=== PATIENT | male | born 1985 | race Caucasian/White ===

== ENCOUNTER 2022-12-01 00:41 | Outpatient (REF) | payer SELFPAY ==
--- NOTE | 2022-12-01 00:41 | EDS_ITS ---
DATE OF SERVICE 12/01/22 CHIEF COMPLAINT [Ingested fentanyl] HISTORY OF PRESENT ILLNESS [38-year-old male past medical history of psychiatric illness. Tonight he was arrested in the [place] area. He ingested 2 g of fentanyl to hide the evidence. This occurred about 1 hour ago. He was brought in by [facility] department. Patient states he is always depressed and suicidal.] Past Medical History [Psychiatric illness] Social History [Smokes daily. Drinks frequently. Uses drugs almost daily including fentanyl and methamphetamines. Does do IV drug use.] Review of Systems [Denies recent illness.] PHYSICAL EXAMINATION [38-year-old male. Vital signs are stable and afebrile. He does have a pulse rate in the 50s. But his blood pressure is 164/70. He is awake and alert. His pulse ox is 100% on room air. No hypoxia. Afebrile. He does not look septic or toxic. Sitting upright in bed. He is handcuffed. [employer] in the room. H EENT exam unremarkable. Atraumatic. Pupils round reactive light. No trouble breathing or swallowing. Neck nontender. No JVD. No lymphadenopathy. Lungs clear to auscultation bilaterally. Heart rate about 55. No murmur. Sinus bradycardia on the monitor. Chest wall nontender. Abdomen soft nontender. Moving all 4 extremities. Calves are nontender without edema. Normal strength. Back nontender. Neurologically is awake and alert with no focal motor deficits.] EMERGENCY DEPARTMENT COURSE AND TREATMENT [38-year-old male ingested 2 g of fentanyl reportedly the night to try to hide evidence after he was arrested by the [employer] department. Currently denies any complaints. Does have a history of psychiatric illness. Believes he was hospitalized last year for that. He will undergo an ED mental health evaluation including labs. [facility] department is planning on arresting him once he is medically cleared and take him back to the [place] [facility]. He has outstanding warrants. Currently he is stable but will need a period of observation in the emergency department] Lab results: CBC showed a white count of 7. H&H of 14 and 43. Platelets of 239. Urinalysis negative. EKG shows a sinus bradycardia rate of 42 no acute signs of DE or ischemia. No significant dysrhythmia.Rhythm strip showed a sinus bradycardia rate of 42. No PVCs. Rapid COVID test negative. Chemistries unremarkable. BUN is 6. Liver enzymes unremarkable. CRP less than 2.9. TSH 0.95. In the normal range. Glucose 101. Alcohol negative. Tox screen positive for amphetamines and benzodiazepines and ecstasy. Repeat exam at 1:55 AM patient is getting more sedate and somnolent suspect secondary to his ingestion of the fentanyl. His vital signs and heart rate remained stable remains bradycardic. He is not hypoxic. He will be given 2 mg IV of Narcan. Patient did show improvement to the IV Narcan and is more awake at this time. He is experiencing some physical withdrawal symptoms. Due to nausea was treated with IV Zofran also. Repeat exam patient is doing well at 0335 AM. He will be observed for a while longer to ensure that he does not become somnolent again with the fentanyl that he ingested. Currently he does not need another dose of Narcan. Expected plan is that he is under arrest and will go to [facility] under both withdrawal and suicide precautions. Repeat exam patient had recurrent nausea and vomiting was given a second dose of IV Zofran around 4:40 AM. Currently he is resting comfortably. Patient doing well at 5:21 AM. He will be given a notice IV Zofran. Discharged back to the [place] [facility] with a prescription for Zofran 4 mg as needed nausea. Impression: 1. Intentional fentanyl ingestion/overdose to hide evidence 2. Depression 3. Under arrest by the [employer] department 4. History of drug abuse 5. History of mental illness 6. Physical withdrawal from IV Narcan
--- NOTE | 2022-12-01 00:46 | EKG12_ITS ---
Test Reason : OVERDOSE Blood Pressure : / mmHG Vent. Rate : 042 BPM Atrial Rate : 042 BPM P-R Int : 132 ms QRS Dur : 082 ms QT Int : 474 ms P-R-T Axes : 045 042 031 degrees QTc Int : 395 ms Marked sinus bradycardia Abnormal ECG Confirmed by LEANN BRODERICK MD ([id number]), graphics editor CAREN SOL ([id number] on 12/07/2022 11:38:31 AM Referred By: VIN Confirmed By:LEANN BRODERICK MD
[2022-12-01 05:20] LABS: Mucous, Urine 0 SEEN /hpf (<or=2+); Red Blood Cells-Urine 0 SEEN /hpf (0-5); Squamous Epithelial Cells - UA 0 SEEN /hpf (0-5); White Blood Cells 0 SEEN /hpf (0-5)
[2022-12-01 05:44] LABS: Bacteria RARE /hpf (None Seen); Color, Urine Yellow (Yellow); Glucose, Dipstick NEGATIVE (Normal); Ketone-Dipstick Negative (Negative); Leukocyte Esterase-Dipstick 25 /ul (Negative); Nitrite-Dipstick Negative (Negative); Occult Blood-Urine Negative /ul (Negative); Protein-Dipstick Negative (Negative); Urine Bilirubin Dipstick Negative (Negative); Urine Clarity Clear (Clear); Urine Urobilinogen Normal (Normal)
[2022-12-01 05:48] LABS: Absolute Lymphocyte Count 2.42 X10^3/uL (0.83-4.51); Absolute Neutrophil Count 3.8 X10^3/uL (2.0-7.7); Basophil# 0.04 X10^3/uL; Basophil% 0.6 % (0-1); Eosinophil# 0.24 X10^3/uL; Eosinophils% 3.4 % (0-5); Hematocrit 43.4 % (40-54); Hemoglobin 14.4 g/dL (13.0-16.5); Lymphocyte # 2.42 X10^3/ul (0.83-4.51); Lymphocyte % 34.3 % (19-41); Mean Corp Hgb Conc 33.2 g/dL (32-36); Mean Corpuscular Hgb 29.2 pg (27.0-32.0); Mean Platelet Vol. 10.4 fl (6.2-12.0); Monocyte# 0.56 X10^3/uL; Monocyte% 7.9 % (0-10); NRBC Flagged by Analyzer 0 % (0-5); Neutrophil # 3.78 X10^3/uL (2.7-7.7); Neutrophil % 53.5 % (47-70); Platelet Count 239 K/mm3 (150-450); RBC Distribution Width CV 12.4 % (11.6-14.6); RBC Distribution Width SD 39.7 fl (35.1-43.9); Red Blood Count 4.93 M/mm3 (4.6-6.2); White Blood Count 7.1 K/mm3 (4.4-11.0)
[2022-12-01 07:50] LABS: ALB/GLOB Ratio 1.1 RATIO (0.9-2.4); Albumin, Serum 3.6 g/dL (3.2-5.0); BUN 6 mg/dL (7-18); BUN/Creat Ratio 7.7 RATIO (10-20); Creatinine, Serum 0.78 mg/dL (0.70-1.30); EST Glomerular Filtration Rate 120 mL/min (>60); Est Glom Filt Rate - Afr Amer 145 mL/min (>60); Globulin 3.2 g/dL (2.2-4.2); Glucose 101 mg/dL (74-106); Protein, Total 6.8 g/dL (6.4-8.2)
[2022-12-01 07:51] LABS: AST(SGOT) 24 U/L (15-37); Alanine Aminotransfer ALT/SGPT 20 U/L (16-61); Alkaline Phosphatase 64 U/L (45-117); Anion Gap 4 (5-15); Calcium,Total 8.4 mg/dL (8.5-10.1); Chloride 108 mmol/L (98-107); Potassium 4.2 mmol/L (3.5-5.1); Sodium Level 141 mmol/L (136-145)
[2022-12-01 07:52] LABS: CRP < 2.90 mg/L (0.0-3.0); Thyroid Stim Hormone (TSH) 0.96 uIU/mL (0.358-3.74)
[2022-12-01 07:54] LABS: Alcohol, Blood (Medical)-Serum < 3.0 mg/dL
[2022-12-01 07:56] LABS: Bilirubin, Direct 0.09 mg/dL (0.00-0.30)
[2022-12-01 07:58] LABS: Amphetamine Urine POSITIVE (<1000 ng/mL); Barbiturate Urine NEGATIVE (< 200 ng/mL); Benzodiazepine Urine POSITIVE (< 200 ng/mL); Cocaine Urine NEGATIVE (< 300 ng/mL); Ecstacy Urine POSITIVE (< 500 ng/mL); Methadone Urine NEGATIVE (< 300 ng/mL); Opiates Urine NEGATIVE (< 300 ng/mL); Vista UDS pH Range 6
[2022-12-01 07:59] LABS: PCP Urine NEGATIVE (< 25 ng/mL); THC Urine NEGATIVE (< 50 ng/mL)
== END 2022-12-01 05:54 ==
LOC: EDREF 00:41
PROVIDERS: Visit Provider Emergency Medicine
DX: T40.414A Poisoning by fentanyl or fentanyl analogs, undetermined, initial encounter (principal); F32.A Depression, unspecified; Z65.3 Problems related to other legal circumstances; Z86.59 Personal history of other mental and behavioral disorders; F11.23 Opioid dependence with withdrawal
CPT/HCPCS: 36415; 80053; 80307; 81001; 82077; 82248; 84443; 85025; 86140; 87811; 93005; 96361; 96374; 96375; 99285; A4216; J2405